=== PATIENT | female | born 1990 ===

== ENCOUNTER 2022-10-11 18:30 | Inpatient (IN) | payer OTHER, SELFPAY ==
[2022-10-11] MEDS: Magnesium Hydrox/Alum Hydrox 30 ML ORAL.SUSP PO (22:32)
[2022-10-11] MEDS: hydrOXYzine HCL 25 MG TABLET PO (22:40)
[2022-10-11 23:50] VITALS: BMI 32.5
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
[2022-10-12] MEDS: traZODone HCL 50 MG TABLET PO (01:25)
[2022-10-12 07:30] LABS: MANUAL DIFF FLAG NO
[2022-10-12 07:37] LABS: Basophils Absolute Auto 0.1 X10*3/uL (0.0-0.2); Basophils Percent Auto 0.8 % (0-2); Eosinophils Absolute Auto 0.1 X10*3/uL (0.0-0.4); Eosinophils Percent Auto 0.5 % (0-4); Hematocrit 39.7 % (37.0-47.0); Hemoglobin 13.8 g/dl (12.0-16.0); Imm Gran Abs Auto 0.03 X10*3/uL (0.00-0.03); Imm Gran Pct Auto 0.3 % (0.0-0.4); Lymphocytes Absolute Auto 3.1 X10*3/uL (1.2-4.9); Lymphocytes Percent Auto 30.7 % (20-40); Mean Corpuscular HGB Conc 34.8 g/dl (31.0-35.0); Mean Corpuscular Hemoglobin 30.2 pg (27.0-33.0); Mean Corpuscular Volume 86.9 fL (80.0-98.0); Mean Platelet Volume 8.4 fL (9.4-12.3); Monocytes Absolute Auto 0.8 X10*3/uL (0.1-1.2); Monocytes Percent Auto 7.9 % (2-11); Neutrophils Percent Auto 59.8 % (45-73); Platelet Count 362 X10*3/uL (160-400); Red Blood Count 4.57 X10*6/uL (4.20-5.50); Red Cell Distribution Width 12.1 % (11.0-16.0)
[2022-10-12 07:55] VITALS: BP 162/97; PULSE 95; RESP 16; TEMP 36.4; O2SAT 97
[2022-10-12 08:21] LABS: Alanine Aminotransferase 26 U/L (0-31); Albumin Level 5.1 g/dL (3.5-5.0); Alkaline Phosphatase 66 U/L (39-117); Anion Gap 16 (12-20); Aspartate Amino Transferase 18 U/L (5-31); Blood Urea Nitrogen 10 mg/dL (9-16); Calcium 10.4 mg/dL (8.4-10.2); Carbon Dioxide 25 mmol/L (22-29); Chloride 104 mmol/L (96-108); Cholesterol 212 mg/dL; Creatinine Clr Calc Pharmacy 98.1; Estimated Glomerular Filt Rate > 60; Glucose Fasting 100 mg/dL (60-99); HDL Cholesterol 44 mg/dL; LDL Cholesterol Calculated 152 mg/dl; Potassium 4.1 mmol/L (3.3-5.1); Sodium 141 mmol/L (135-145); TSH reflex Free T4 1.71 uIU/mL (0.32-4.0); Total Protein 8.2 g/dL (6.5-8.0); Triglycerides 81 mg/dL
[2022-10-12 08:42] LABS: Bilirubin Total 0.5 mg/dL (0.0-1.0)
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
[2022-10-12 11:51] VITALS: BP 149/98; PULSE 78; TEMP 36.2; O2SAT 99
[2022-10-12 11:55] LABS: Folate 19.4 ng/mL (> or = 4.0); Vitamin B12 451 pg/mL (200-900)
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
[2022-10-12 18:00] VITALS: BP 138/88; PULSE 91; TEMP 36.3
[2022-10-12] MEDS: risperiDONE 0.5 MG TABLET PO (21:59)
[2022-10-13] MEDS: traZODone HCL 50 MG TABLET PO ×3 (02:47→21:20)
[2022-10-13] MEDS: Acetaminophen 325 MG TABLET 650 MG PO ×2 (05:46→17:04)
[2022-10-13] MEDS: NIFEdipine ER 30 MG TAB.ER.24 PO (09:05)
[2022-10-13] MEDS: Fluticasone Propionate Nasal 16 GM SPRAY 1 SPRAY NOSTRIL-B (09:06)
[2022-10-13 09:09] VITALS: BP 111/66; PULSE 78; RESP 16; TEMP 36.7; O2SAT 97
--- NOTE | 2022-10-13 11:17 | P.PNPSI_ITS ---
Subjective Subjective Date of Service: 10/13/22 Reason For Visit: MDD RECURRENT EPISODE W PSYCHOTIC FEATURES ALCOHOL Subjective Notes: Conditional Voluntary Healthcare Proxy: No Guardianship: No Interim History: Patient remains quite depressed withdrawn internally preoccupied. She is having difficulty with linear thought in states she is having unclear symptoms at night unclear if night terrors states she is constantly being woken up relates this to somehow I year ago being diagnosed with some form of neurological condition the patient is unable to elaborate. She may have had an MRI at some point last year with some findings but does not appear to have followed up denies seizures Some history of headaches Difficult to get a clear history remains quite guarded poor historian internally preoccupied hopeless helpless denies active self-harm positive hallucinations but will not elaborate Had been on 100 mg of sertraline Risperdal 2 mg unclear if patient had adverse effect or was taking regularly Medication Compliance: No Mental Status Exam Mental Status Exam Narrative: Mental Status Exam Narrative: Appearance: Casually dressed somewhat disheveled Behavior: Odd internally preoccupied still yelling out psychomotor: Speech: Hesitant Thought proccess tangential limited linear thought thought blocking Thought content helpless hopeless denies active self-harm: Mood: Depressed irritable Affect: Labile constricted SI:denies in this setting but hopeless helpless HI:denies VH/AH:pos would not describe Delusions: Insight/judgment: Impaired Memory/cog: Unable to cooperate with cognitive testing Diagnostics Vital Signs (24Hr): Vital Signs - 24 hr 10/12/22 11:51 10/12/22 18:00 10/13/22 09:09 Temperature 97.2 F 97.4 F 98.1 F Pulse Rate 78 91 78 Respiratory Rate 16 Blood Pressure 149/98 H 138/88 111/66 Pulse Oximetry 99 97 Oxygen Delivery Method Room Air Room Air BMI result Body Mass Index 32.5 Labs Results: 10/12/22 07:00 10/12/22 07:00 Labs: Laboratory Results - last 48 hr 10/12/22 10/12/22 10/12/22 07:00 07:00 07:00 WBC 10.0 RBC 4.57 Hgb 13.8 Hct 39.7 MCV 86.9 MCH 30.2 MCHC 34.8 RDW 12.1 Plt Count 362 MPV 8.4 L Immature Gran % (Auto) 0.3 Neut % (Auto) 59.8 Lymph % (Auto) 30.7 [place] % (Auto) 7.9 Eos % (Auto) 0.5 Baso % (Auto) 0.8 Lymph # (Auto) 3.1 [place] # (Auto) 0.8 Eos # (Auto) 0.1 Baso # (Auto) 0.1 Abs Immat Gran (auto) 0.03 Absolute Neuts (auto) 6.0 Absolute Nucleated RBC 0.000 Nucleated RBC % (auto) 0.0 Sodium 141 Potassium 4.1 Chloride 104 Carbon Dioxide 25 Anion Gap 16 BUN 10 Creatinine 0.81 Estim Creat Clear Calc 98.1 Estimated GFR > 60 Fasting Glucose 100 H Calcium 10.4 H Total Bilirubin 0.5 AST 18 ALT 26 Alkaline Phosphatase 66 Total Protein 8.2 H Albumin 5.1 H Triglycerides 81 Cholesterol 212 LDL Cholesterol, Calc 152 HDL Cholesterol 44 Vitamin B12 451 Folate 19.4 TSH 1.71 Medications Medications Current Medications Acetaminophen (Acetaminophen 325 Mg Tablet) 650 mg PO Q6H PRN PRN Reason: Headache/Pain Mild Scale (1-3) Last Admin: 10/13/22 05:46 Dose: 650 mg Al Hydroxide/Mg Hydroxide (Magnesium Hydrox/Alum Hydrox 30 Ml Oral.Susp) 30 ml PO Q6H PRN PRN Reason: Heartburn/Nausea Last Admin: 10/11/22 22:32 Dose: 30 ml Fluticasone Propionate (Fluticasone Propionate Nasal 16 Gm [place]) 1 spray NOSTRIL-B BID [facility] Last Admin: 10/13/22 09:06 Dose: 1 spray Hydrocortisone (Hydrocortisone 2.5 % Rectal Cr 30 Gm Tube) 1 appl UT BID [facility] Last Admin: 10/13/22 10:04 Dose: Not Given Hydroxyzine HCl (Hydroxyzine Hcl 25 Mg Tablet) 25 mg PO Q6H PRN PRN Reason: Anxiety Last Admin: 10/11/22 22:40 Dose: 25 mg Magnesium Hydroxide (Milk Of Magnesia 30 Ml Oral.Susp) 30 ml PO DAILY PRN PRN Reason: Constipation Multi-Ingred Medicated Throat [place] (Throat [place], Medicated 177 Ml Bottle) 1 spray MUCOUS MEM Q2H PRN PRN Reason: Sore Throat Nicotine Polacrilex (Nicotine Polacrilex 2 Mg Gum) 2 mg BUCCAL Q2H PRN PRN Reason: Craving Nifedipine (Nifedipine Er 30 Mg Tab.Er.24) 30 mg PO DAILY [facility]; Protocol Last Admin: 10/13/22 09:05 Dose: 30 mg Risperidone (Risperidone 0.5 Mg Tablet) 0.5 mg PO BEDTIME PABLO Last Admin: 10/12/22 21:59 Dose: 0.5 mg Trazodone HCl (Trazodone Hcl 50 Mg Tablet) 50 mg PO BEDTIME PRN PRN Reason: Insomnia Last Admin: 10/13/22 05:42 Dose: 50 mg Allergies Allergies Allergy/AdvReac Type Severity Reaction Status Date / Time ibuprofen AdvReac Intermediate Hives Verified 10/11/22 23:56 aspirin AdvReac Unknown Unknown Verified 10/11/22 23:56 Assessment & Plan Assessment & Plan (1) Major depression with psychotic features: Status: Acute Code(s): F32.3 - Major depressive disorder, single episode, severe with psychotic features (2) Post traumatic stress disorder (PTSD): Status: Acute Code(s): F43.10 - Post-traumatic stress disorder, unspecified (3) Alcohol abuse: Status: Acute Code(s): F10.10 - Alcohol abuse, uncomplicated Plan Patient admitted on a conditional voluntary 15 minute checks. Monitor for withdrawal. Restart Risperdal sertraline trying get additional history and clarity patient thought disordered and withdrawn. Also need clear picture of substance use. Monitor safety patient also having odd symptoms at night may have had a neurological workup last year reported history of some brain abnormality that she cannot relate clearly denies history of seizures sertraline 50 mg to start tomorrow and Risperdal p.r.n. Thiamine 100 mg daily Trying get MRI and other records from [facility] question neuro workup I spent minutes with the patient and/or on the patient floor today, greater than?50% of which was spent counseling/coordinating care. Patient educated on: diagnosis and medical condition Reason for contiued inpatient stay Substantial Risk for: harm to self
[2022-10-13] MEDS: hydrOXYzine HCL 25 MG TABLET PO (17:04)
[2022-10-13 17:31] LABS: CT PCR NOT DETECTED (Not Detect.); NG PCR NOT DETECTED (Not Detect.)
[2022-10-13 17:35] VITALS: BP 155/94; PULSE 82; RESP 18; TEMP 36.6; O2SAT 99
[2022-10-13] MEDS: risperiDONE 0.5 MG TABLET PO (21:20)
[2022-10-14 08:13] LABS: HBS Num1 0.75 mIU/mL (0-7.99); HBc Num1 0.07 S/CO (0.00-0.79); HBsAGNum1 0.29 S/CO (0.00-0.99); HIV AB/AG Nonreactive (Nonreactive); Hepatitis B Core Antibody Nonreactive (Nonreactive); Hepatitis B Surface Antigen Negative (Negative); ~HepC Num1 0.57 S/CO (0.00-0.79); ~Hepatitis B Surface Antibody NONREACTIVE (Nonreactive); ~Hepatitis C Antibody Nonreactive (Nonreactive)
[2022-10-14 08:41] LABS: Syphilis Screen Nonreactive (Nonreactive)
[2022-10-14 08:50] VITALS: BP 111/76; PULSE 82; TEMP 36.1
[2022-10-14] MEDS: Hydrocortisone 2.5 % Rectal Cr 30 GM TUBE 1 APPL PR (09:06)
[2022-10-14] MEDS: Throat Spray, Medicated 177 ML BOTTLE 1 SPRAY MUCOUS MEM ×2 (09:06→20:26)
[2022-10-14] MEDS: Fluticasone Propionate Nasal 16 GM SPRAY 1 SPRAY NOSTRIL-B ×2 (09:06→20:21)
[2022-10-14] MEDS: NIFEdipine ER 30 MG TAB.ER.24 PO (09:06)
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
--- NOTE | 2022-10-14 13:26 | PC.NURSE ---
10/14/22- pt signed 3 day noticed up on October 17. OSMAR, EZEQUIEL, and aware.
[2022-10-14] MEDS: Acetaminophen 325 MG TABLET 650 MG PO (15:56)
[2022-10-14] MEDS: hydrOXYzine HCL 25 MG TABLET PO (15:56)
[2022-10-14 17:03] LABS: OBS Int Ctl Valid YES; OBS1 NEGATIVE (NEGATIVE)
[2022-10-14] MEDS: Nicotine Polacrilex 2 MG GUM BUCCAL (19:03)
[2022-10-14] MEDS: risperiDONE 1 MG TABLET PO (20:22)
[2022-10-15 09:00] VITALS: BP 133/78; PULSE 80; TEMP 35.9
[2022-10-15] MEDS: Fluconazole 100 MG TABLET PO (09:12)
[2022-10-15] MEDS: Hydrocortisone 2.5 % Rectal Cr 30 GM TUBE 1 APPL PR (09:12)
[2022-10-15] MEDS: Fluticasone Propionate Nasal 16 GM SPRAY 1 SPRAY NOSTRIL-B (09:12)
[2022-10-15] MEDS: Throat Spray, Medicated 177 ML BOTTLE 1 SPRAY MUCOUS MEM (09:12)
[2022-10-15] MEDS: NIFEdipine ER 30 MG TAB.ER.24 PO (09:12)
[2022-10-15] MEDS: Thiamine HCL 100 MG TABLET PO (09:13)
[2022-10-15] MEDS: risperiDONE 0.5 MG TABLET PO (14:14)
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
[2022-10-15 18:00] VITALS: BP 129/86; PULSE 93; RESP 16; TEMP 37; O2SAT 100
[2022-10-15] MEDS: Sertraline HCL 25 MG TABLET 75 MG PO (20:48)
[2022-10-15] MEDS: risperiDONE 2 MG TABLET PO (20:49)
[2022-10-15] MEDS: Acetaminophen 325 MG TABLET 650 MG PO (20:49)
[2022-10-15] MEDS: traZODone HCL 50 MG TABLET PO (22:17)
--- NOTE | 2022-10-16 | EEG_ITS ---
This is a 16-channel EEG with an EKG lead. The patient is reported awake during the tracing. Background EEG rhythm is 8 to 10 hertz, 5 to 30 microvolt posteriorly and lower amplitude fast anteriorly. Photic stimulation does not produce any significant abnormality. Hyperventilation is not performed. Cardiac lead does not reveal any significant abnormality. No sharp wave spikes or paroxysmal tendencies noted. IMPRESSION: Unremarkable EEG. MD IVY Reyna/MILES / [id number]
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
[2022-10-16 08:15] VITALS: BP 131/86; PULSE 89; RESP 16; TEMP 36.7; O2SAT 97
[2022-10-16] MEDS: Fluconazole 100 MG TABLET PO (09:10)
[2022-10-16] MEDS: Thiamine HCL 100 MG TABLET PO (09:10)
[2022-10-16] MEDS: NIFEdipine ER 30 MG TAB.ER.24 PO (09:10)
[2022-10-16] MEDS: Fluticasone Propionate Nasal 16 GM SPRAY 1 SPRAY NOSTRIL-B ×2 (09:11→22:17)
[2022-10-16] MEDS: Hydrocortisone 2.5 % Rectal Cr 30 GM TUBE 1 APPL PR ×2 (09:11→22:17)
[2022-10-16 10:35] VITALS: BP 152/89; PULSE 84; RESP 16; TEMP 36.3; O2SAT 97
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
[2022-10-16 18:00] VITALS: BP 128/69; PULSE 82; RESP 16; TEMP 36.4; O2SAT 97
[2022-10-16] MEDS: risperiDONE 2 MG TABLET PO (22:16)
[2022-10-16] MEDS: Sertraline HCL 100 MG TABLET PO (22:16)
[2022-10-16] MEDS: traZODone HCL 50 MG TABLET PO (22:32)
[2022-10-17 07:00] VITALS: BMI 31.9
[2022-10-17 08:21] VITALS: BP 122/80; PULSE 74; RESP 16; TEMP 37.3; O2SAT 97
[2022-10-17] MEDS: Thiamine HCL 100 MG TABLET PO (09:20)
[2022-10-17] MEDS: NIFEdipine ER 30 MG TAB.ER.24 PO (09:20)
--- NOTE | 2022-10-17 13:33 | PC.NURSE ---
pt retracted 3 day noticed and signed another on 10/17/2022. 3day up on [facility] 10/22/22
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
[2022-10-17 18:00] VITALS: BP 132/82; PULSE 82; RESP 16; TEMP 37; O2SAT 98
[2022-10-17] MEDS: risperiDONE 2 MG TABLET PO (20:31)
[2022-10-17] MEDS: Sertraline HCL 100 MG TABLET PO (20:31)
[2022-10-17 21:38] LABS: Strep A Nucleic Acid Negative (Negative)
[2022-10-17 22:03] LABS: COVID-19 Test Negative (Negative)
--- NOTE | 2022-10-17 22:27 | PC.NURSE ---
Pt alert and oriented. Pt C/O sore throat, Provider notified, order for throat culture collected and sent to lab.
[2022-10-18] MEDS: Thiamine HCL 100 MG TABLET PO (09:25)
[2022-10-18] MEDS: NIFEdipine ER 30 MG TAB.ER.24 PO (09:25)
[2022-10-18 09:27] VITALS: BP 110/69; PULSE 71; RESP 16; TEMP 36.3; O2SAT 97
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
[2022-10-18] MEDS: Sertraline HCL 100 MG TABLET PO (21:34)
[2022-10-18] MEDS: risperiDONE 2 MG TABLET PO (21:34)
[2022-10-18 21:42] VITALS: BP 138/89; PULSE 71; RESP 14; TEMP 36.2
[2022-10-18 22:46] LABS: Appearance Urine Clear; Color Urine Yellow; Glucose Urine UA Negative (Negative); Leukocyte Esterase Urine Negative (Negative); Nitrite Urine Negative (Negative); PH 6.5 (5.0-9.0); Specific Gravity - Urine 1.025 (1.005-1.025); Urine Blood Negative (Negative); Urine Ketones Negative (Negative); Urine Protein Negative (Neg-Trace)
[2022-10-18 22:51] LABS: Bacteria Urine None Seen (None Seen); Hyaline Casts Urine 0-2 /LPF (0-2); RBC Urine 0-2 /HPF (0-2); Squamous Epithelial Cell Urine 0-2 /HPF (0-2); WBC Urine 0-5 /HPF (0-5)
[2022-10-19] MEDS: buPROPion HCl XL 150 MG TAB.ER.24H PO (08:51)
[2022-10-19] MEDS: NIFEdipine ER 30 MG TAB.ER.24 PO (08:51)
[2022-10-19] MEDS: Thiamine HCL 100 MG TABLET PO (08:51)
[2022-10-19 08:54] VITALS: BP 120/75; PULSE 72; RESP 18; TEMP 36.3; O2SAT 97
[2022-10-19] MEDS: Acetaminophen 325 MG TABLET 650 MG PO (14:51)
--- NOTE | 2022-10-19 15:00 | PC.NURSE ---
Patient expressed concern about lateral L knee discomfort to the extent that she felt unsafe to shower unassisted. Patient took supervised shower and was administered tylenol to help with discomfort.
--- NOTE | 2022-10-19 15:43 | PC.NURSE ---
MD aware of knee discomfort.
[2022-10-19 16:08] LABS: CT PCR NOT DETECTED (Not Detect.); NG PCR NOT DETECTED (Not Detect.)
[2022-10-19 17:23] VITALS: BP 151/95; PULSE 89; RESP 18; TEMP 36.1; O2SAT 99
--- NOTE | 2022-10-19 19:08 | PC.NURSE ---
TW spoke with patient regarding need to collect a vaginal swab. Pt. stated that she would prefer to wait until tomorrow AM after she showers to have the swab collected. Will try to encourage patient to shower this evening and collect swab. If unable to collect tonight I will pass on to the oncoming shift.
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
[2022-10-19] MEDS: risperiDONE 2 MG TABLET PO (21:58)
[2022-10-19] MEDS: Hydrocortisone 2.5 % Rectal Cr 30 GM TUBE 1 APPL PR (21:58)
[2022-10-19] MEDS: Sertraline HCL 100 MG TABLET PO (21:58)
[2022-10-19] MEDS: Fluticasone Propionate Nasal 16 GM SPRAY 1 SPRAY NOSTRIL-B (22:02)
[2022-10-20] MEDS: hydrOXYzine HCL 25 MG TABLET PO (06:08)
[2022-10-20 06:10] VITALS: BP 155/97; PULSE 87; RESP 18
[2022-10-20] MEDS: buPROPion HCl XL 150 MG TAB.ER.24H PO (08:42)
[2022-10-20] MEDS: Thiamine HCL 100 MG TABLET PO (08:42)
[2022-10-20] MEDS: NIFEdipine ER 30 MG TAB.ER.24 PO (08:42)
[2022-10-20 08:46] VITALS: BP 162/91; PULSE 74; RESP 18; TEMP 37.3; O2SAT 99
--- NOTE | 2022-10-20 11:04 | PC.NURSE ---
Patient has declined having swab collection for bacterial vaginosis panel. Will continue to attempt collection.
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
[2022-10-20] MEDS: Acetaminophen 325 MG TABLET 650 MG PO (17:45)
[2022-10-20 19:33] VITALS: BP 142/100; PULSE 90; RESP 16; TEMP 36.2; O2SAT 99
[2022-10-20 20:25] VITALS: BP 128/87
[2022-10-20] MEDS: Sertraline HCL 25 MG TABLET 125 MG PO (20:25)
[2022-10-20] MEDS: cloNIDine HCL 0.1 MG TABLET PO (21:43)
[2022-10-20] MEDS: risperiDONE 2 MG TABLET PO (21:43)
[2022-10-20 21:45] VITALS: BP 130/90
--- NOTE | 2022-10-21 | ECG_ITS ---
Test Reason : CHEST TIGHTNESS Blood Pressure : / mmHG Vent. Rate : 073 BPM Atrial Rate : 073 BPM P-R Int : 168 ms QRS Dur : 090 ms QT Int : 396 ms P-R-T Axes : 011 054 012 degrees QTc Int : 436 ms Normal sinus rhythm Normal ECG No previous ECGs available Referred By: Kelvin Wyatt Electronically Signed By:Faustino Henriquez
[2022-10-21 06:00] VITALS: BP 101/55; PULSE 75; RESP 16; TEMP 36.9; O2SAT 97
[2022-10-21 09:30] LABS: BV Int Neg Control Negative (Negative); BV Int Pos Control Positive (Positive)
[2022-10-21] MEDS: Thiamine HCL 100 MG TABLET PO (09:32)
[2022-10-21] MEDS: NIFEdipine ER 30 MG TAB.ER.24 PO (09:32)
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
[2022-10-21 14:20] LABS: CT PCR NOT DETECTED (Not Detect.); NG PCR NOT DETECTED (Not Detect.)
[2022-10-21 16:13] VITALS: BP 124/69; PULSE 80; RESP 18; O2SAT 98
[2022-10-21] MEDS: cloNIDine HCL 0.1 MG TABLET PO (20:28)
[2022-10-21] MEDS: Sertraline HCL 25 MG TABLET 125 MG PO (20:29)
[2022-10-21] MEDS: Hydrocortisone 2.5 % Rectal Cr 30 GM TUBE 1 APPL PR (20:31)
[2022-10-21] MEDS: Fluticasone Propionate Nasal 16 GM SPRAY 1 SPRAY NOSTRIL-B (20:31)
[2022-10-21 20:36] VITALS: BP 119/66; PULSE 75; RESP 18
[2022-10-21] MEDS: Milk of Magnesia 30 ML ORAL.SUSP PO (21:54)
[2022-10-21] MEDS: traZODone HCL 50 MG TABLET PO (21:57)
[2022-10-22] MEDS: metroNIDAZOLE 500 MG TABLET PO ×2 (01:12→12:26)
[2022-10-22 08:56] VITALS: BP 117/78; PULSE 60; RESP 18; TEMP 36.8; O2SAT 98
[2022-10-22 09:16] LABS: BV Int Neg Control Negative (Negative); BV Int Pos Control Positive (Positive)
[2022-10-22] MEDS: NIFEdipine ER 30 MG TAB.ER.24 PO (09:28)
[2022-10-22] MEDS: Thiamine HCL 100 MG TABLET PO (09:28)
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
[2022-10-23 22:54] LABS: Treponema pallidum Ab FTA ABS Nonreactive (Nonreactive)
== END 2022-10-22 13:52 | disposition home or self-care (01) | DRG 751 ==
PROVIDERS: Clinical Nurse Specialist Psychiatric/Mental Health, Adult; Obstetrics & Gynecology; Physician Assistant; Psychiatry & Neurology Psychiatry; Admitting Provider Psychiatry & Neurology Psychiatry; PCP Nurse Practitioner; Visit Provider Psychiatry & Neurology Psychiatry
DX: F32.3 Major depressive disorder, single episode, severe with psychotic features (principal); Z91.14 Patient's other noncompliance with medication regimen; E86.0 Dehydration; F10.10 Alcohol abuse, uncomplicated; I10 Essential (primary) hypertension; F17.210 Nicotine dependence, cigarettes, uncomplicated; F43.10 Post-traumatic stress disorder, unspecified; K64.4 Residual hemorrhoidal skin tags; F14.10 Cocaine abuse, uncomplicated; K62.5 Hemorrhage of anus and rectum; G43.909 Migraine, unspecified, not intractable, without status migrainosus; Z20.822 Contact with and (suspected) exposure to COVID-19; Z71.6 Tobacco abuse counseling; Z59.02 Unsheltered homelessness; Z79.899 Other long term (current) drug therapy
CPT/HCPCS: 36415; 80053; 80061; 81001; 82272; 82607; 82746; 84443; 85025; 86704; 86706; 86780; 86803; 87340; 87389; 87480; 87491; 87510; 87591; 87635; 87651; 87660; 93005; 95816